=== PATIENT | female | born 1985 | race Asian ===

== ENCOUNTER → 2016-08-15 | Outpatient (REF) | payer OTHER | LOC: M LAB REF 13:33 | PROVIDERS: ATTEND Advanced Practice Midwife | DX: Z12.4 Encounter for screening for malignant neoplasm of cervix (principal) ==

== ENCOUNTER → 2017-11-20 | Outpatient (REF) | payer OTHER ==
[2017-11-23 14:15] LABS: HPV HYBRID CAPTURE II Negative (Negative)
== END ==
LOC: M LAB REF 19:16
DX: Z12.4 Encounter for screening for malignant neoplasm of cervix (principal)

== ENCOUNTER → 2017-11-27 | Outpatient (REF) | payer OTHER ==
[2017-11-27 14:01] LABS: PROLACTIN 15.2 NG/ML
[2017-11-27 14:01] LABS: PROGESTERONE 19.2 NG/ML
[2017-11-27 14:02] LABS: LUTEINIZING HORMONE 1.9 mIU/mL
[2017-11-27 14:18] LABS: FREE T4 0.99 NG/DL (0.76-1.46)
== END ==
LOC: M LAB REF 12:36
DX: N93.8 Other specified abnormal uterine and vaginal bleeding (principal)

== ENCOUNTER → 2018-11-12 | Outpatient (REF) | payer OTHER ==
[2018-11-12 20:03] LABS: FREE T4 0.99 NG/DL (0.76-1.46)
[2018-11-12 20:15] LABS: HCG, SERUM QUALITATIVE NEGATIVE (NEGATIVE)
== END ==
LOC: M LAB REF 19:14 → M LABDRWAD 19:14
PROVIDERS: ATTEND Advanced Practice Midwife
DX: N93.8 Other specified abnormal uterine and vaginal bleeding (principal)

== ENCOUNTER → 2018-11-30 | Outpatient (CLI) | payer OTHER ==
--- NOTE | 2018-11-30 19:28 | REP ---
REASON: Vaginal bleeding. COMPARISON: Multiple, the latest 04/04/2016 which showed a fibroid uterus. Today's examination was obtained using transvesical and transvaginal imaging. The uterus measures 11.5 x 7.5 x 9.3 cm. The parenchymal echo pattern is markedly heterogenous as on the prior exam. The endometrial echo complex is partially obscured and deformed by the fibroid changes. The imageable portion has a maximal thickness of 5 mm. In the uterine body on the right there is a 9.5 x 5.4 x 8.1 cm sized mixed echo mass. On the left there is a 3.2 x 2.2 x 2.6 cm sized mixed echo mass. These have increased in size compared to the prior exam. The right ovary measures 3.5 x 2.5 x 2.4 cm and is within normal limits. Left ovary measures 3.9 x 2.3 x 2.3 cm and is within normal limits. The urinary bladder measures 3.3 x 1.6 x 5.5 cm. IMPRESSION:Increased uterine size and increased myomatous change as described above. Electronically Signed by Familia Lainez DO 11/30/2018 07:49 P
== END ==
LOC: M RAD 10:28
PROVIDERS: ATTEND Advanced Practice Midwife
DX: N93.8 Other specified abnormal uterine and vaginal bleeding (principal)

== ENCOUNTER 2019-02-18 07:25 | Day surgery (SDC) | payer OTHER ==
[~2019-02-18] VITALS: Ht 152.4 cm; Wt 43.5 kg
[~2019-02-18 07:25] MED LIST: LR 1,000 ML IV ONE
[2019-02-18 08:01] LABS: URINE PREG TEST NEGATIVE (NEGATIVE)
[2019-02-18 08:04] LABS: HEMATOCRIT 44.5 % (36.0-47.0); HEMOGLOBIN 14.5 g/dl (12.0-15.5); MEAN CORPUSCULAR HEMOGLOBIN 29.6 pg (27.0-33.0); MEAN CORPUSCULAR HGB CONC 32.6 g/dl (32.0-36.5); MEAN CORPUSCULAR VOLUME 90.8 fl (80.0-96.0); PLATELET COUNT, AUTOMATED 328 10^3/uL (150-450); WHITE BLOOD COUNT 4.2 10^3/uL (4.0-10.0)
[2019-02-18] MEDS ORDERED: VASOPRESSIN INJ 20 UNITS/ML VIAL As Ordered ONE (09:24)
[2019-02-18] MEDS ORDERED: LIDOCAINE 2% INJ 100 MG/5 ML SDV (FOR ANES.) As Ordered ONE (10:02)
[2019-02-18] MEDS ORDERED: fentaNYL 100 MCG/2 ML INJECTION (J3010) As Ordered ONE ×2 (10:02→12:44)
[2019-02-18] MEDS ORDERED: ONDANSETRON 4MG/2ML VIAL (J2405) As Ordered ONE ×2 (10:02→15:56)
[2019-02-18] MEDS ORDERED: KETOROLAC 60 MG/2 ML VIAL (J1885) As Ordered ONE (10:02)
[2019-02-18] MEDS ORDERED: dexameTHASONE 4 MG/ML 1ML VIAL (J1100) As Ordered ONE (10:02)
[2019-02-18] MEDS ORDERED: MIDAZOLAM INJ 2 MG/2 ML VIAL (J2250) As Ordered ONE (10:02)
[2019-02-18] MEDS ORDERED: PROPOFOL 200 MG/20 ML VIAL As Ordered ONE (10:02)
[2019-02-18] MEDS ORDERED: ACETAMINOPHEN 1000MG 100ML IV BTL (OFIRMEV) (J0131 PER 10MG) As Ordered ONE (10:02)
[2019-02-18] MEDS ORDERED: HYDROmorphone HCL 2 MG/ML 1ML VIAL (J1170) As Ordered ONE (10:02)
[2019-02-18] MEDS ORDERED: ROCURONIUM BROMIDE 50 MG/5 ML VIAL As Ordered ONE (10:02)
[2019-02-18] MEDS ORDERED: SUGAMMADEX SODIUM 500 MG/5 ML VIAL (BRIDION) As Ordered ONE (10:31)
[2019-02-18] MEDS ORDERED: ePHEDrine SULFATE 25 MG/5 ML(5MG/ML) SYRINGE As Ordered ONE (10:32)
[2019-02-18] MEDS: fentaNYL 100 MCG/2 ML INJECTION (J3010) IV PRN ×4 (12:45→13:00)
[2019-02-18] MEDS ORDERED: OXYC1TAB23 PO (12:54)
[2019-02-18] MEDS ORDERED: IBUP-1022 PO (12:55)
[2019-02-18] MEDS ORDERED: PERCOCET 5MG/325MG TAB PO PRN ×3 (13:00)
[2019-02-18] MEDS ORDERED: LR 1,000 ML IV SCH ×2 (13:00)
[2019-02-18] MEDS ORDERED: ONDANSETRON 4MG/2ML VIAL (J2405) IV PRN (13:00)
[2019-02-18] MEDS ORDERED: METOCLOPRAMIDE INJ 10MG/2ML VIAL (J2765) IV PRN (13:00)
[2019-02-18] MEDS ORDERED: IBUPROFEN 800 MG TAB PO ONE (17:30)
[2019-02-18] MEDS ORDERED: METOCLOPRAMIDE INJ 10MG/2ML VIAL (J2765) As Ordered ONE (17:45)
[2019-02-18 19:30] VITALS: BP 98/60
--- NOTE | 2019-02-19 02:24 | RO ---
DATE OF PROCEDURE: 02/18/2019 PREOPERATIVE DIAGNOSIS: Symptomatic fibroid uterus. POSTOPERATIVE DIAGNOSIS: Symptomatic fibroid uterus. PROCEDURE: Robotic-assisted laparoscopic myomectomy. SURGEON: Govind Peres MD IRRADIATED FUEL HANDLER: Minerva Collins NP ANESTHESIA: General endotracheal. ESTIMATED BLOOD LOSS: 300 mL. URINE OUTPUT: 200 mL. FINDINGS: 10 cm uterine fibroid with multilobulated appearance in the subserosal region on the right side of the uterus. OPERATIVE SUMMARY: The patient taken to the operating room, where general endotracheal anesthesia was induced. She was prepped and draped in a sterile fashion in the dorsal lithotomy position. Bernstein catheter was placed. A ZFiveStars uterine manipulator was placed. Periumbilical incision was made with a scalpel and carried through to the fascia. A Veress needle was placed through this incision while tenting up on the skin of the abdomen. Intra-abdominal location of the Veress needle was assessed with the use of a saline-filled syringe. Pneumoperitoneum was created. The Veress needle was removed. An 8 mm trocar using Visiport was inserted through this incision. Three 8 mm suprapubic ports were placed under direct visualization. The Edgari surgical robot was docked to the ports. Using a fenestrated bipolar instrument and the monopolar Endo Eli, a vertical incision was created in the right posterior surface of the uterus over the large uterine fibroid. Myometrial adhesions to the fibroid were dissected with combination of blunt and sharp dissection. Perforating blood vessels to the fibroid were coagulated and incised as they were encountered. The fibroid was grasped with an endoscopic tenaculum to help give tension. The fibroid was twisted in different directions to allow for dissection of the myometrium off the fibroid. The fibroid was removed intact. Multiple lobes, as well. The fibroid went about 75% through the thickness of the myometrium and did not enter the endometrial cavity. The uterus was closed with #1 V-Loc suture in a running fashion. A second layer was also placed. The incision was then sprayed with an Daniella matrix. Good hemostasis was noted. The da Nayla surgical robot was undocked. The fibroid was placed in a 10 cm Endo Catch bag with some difficulty. The fibroid was brought through the umbilical port. This port was extended to about 3 cm. The fibroid was morcellated in the bag and removed in its entirety. The fascia at the umbilical port was closed with #0 Vicryl in a running fashion. The deep layer was closed with #2-0 Vicryl. Skin of all ports was closed with #4-0 Monocryl subcuticular sutures. Minerva Collins NP, assisted in all aspects of procedure from beginning to end. She helped position the patient, insert the ports. She manipulated the uterus throughout the procedure. She assisted with removal of the specimen and assisted in closure of all ports.
== END 2019-02-18 20:07 | disposition home or self-care (01) ==
LOC: M SDC 07:25
PROVIDERS: ATTEND Specialist
DX: D25.9 Leiomyoma of uterus, unspecified (principal)
CPT/HCPCS: 36415; 58545; 84703; 85027; 86850; 86900; 86901; 88305; J0131; J1100; J1170; J1885; J2250; J2405; J2765; J3010

== ENCOUNTER → 2019-12-26 | Outpatient (REF) | payer OTHER ==
[~2019-12-26] MED LIST changes: +IBUP-1022 PO; -LR 1,000 ML IV ONE; +OXYC1TAB23 PO
== END ==
LOC: M SFHCWAGY 18:14
PROVIDERS: ATTEND Specialist
DX: Z01.419 Encounter for gynecological examination (general) (routine) without abnormal findings (principal); Z12.4 Encounter for screening for malignant neoplasm of cervix

== ENCOUNTER → 2021-11-30 | Outpatient (REF) | payer OTHER | LOC: M SFHCWAGY 12:56 | PROVIDERS: ATTEND Specialist | DX: Z12.4 Encounter for screening for malignant neoplasm of cervix (principal) ==

== ENCOUNTER → 2022-03-07 | Outpatient (CLI) | payer OTHER | LOC: M WHC 13:34 | PROVIDERS: ATTEND Specialist | DX: D25.9 Leiomyoma of uterus, unspecified (principal) ==

== ENCOUNTER → 2022-05-18 | Outpatient (CLI) | payer OTHER | LOC: M LABSMTC 10:19 | PROVIDERS: ATTEND Anesthesiology | DX: Z01.812 Encounter for preprocedural laboratory examination (principal); Z11.52 Encounter for screening for COVID-19 ==

== ENCOUNTER 2022-05-23 08:22 | Day surgery (SDC) | payer OTHER ==
[~2022-05-23] VITALS: Ht 152.4 cm; Wt 49.0 kg
[2022-05-23] MEDS ORDERED: LR 1,000 ML IV SCH ×3 (09:10→14:15)
[2022-05-23 09:16] LABS: HEMATOCRIT 31.3 % (36.0-47.0); HEMOGLOBIN 9.1 g/dl (12.0-15.5); MEAN CORPUSCULAR HGB CONC 29.1 g/dl (32.0-36.5); MEAN CORPUSCULAR VOLUME 72.1 fl (80.0-96.0); PLATELET COUNT, AUTOMATED 464 10^3/uL (150-450); RED BLOOD COUNT 4.34 10^6/uL (4.00-5.40); WHITE BLOOD COUNT 4.7 10^3/uL (4.0-10.0)
[2022-05-23] MEDS ORDERED: propofoL 200 MG/20 ML VIAL As Ordered ONE (09:24)
[2022-05-23] MEDS ORDERED: fentaNYL 100 MCG/2 ML INJECTION As Ordered ONE (09:24)
[2022-05-23] MEDS ORDERED: LIDOCAINE 2% 100MG/5ML SDV (FOR ANES.) As Ordered ONE (09:24)
[2022-05-23] MEDS ORDERED: ROCURONIUM BROMIDE 50 MG/5 ML VIAL As Ordered ONE (09:24)
[2022-05-23] MEDS ORDERED: MIDAZOLAM INJ 2MG/2ML VIAL (J2250 PER 1MG) As Ordered ONE (09:25)
[2022-05-23] MEDS ORDERED: GLYCOPYRROLATE INJ 0.2 MG/ML 2 ML VIAL As Ordered ONE (09:31)
[2022-05-23] MEDS ORDERED: BUPIVACAINE HCL 0.25% 10ML VIAL As Ordered ONE (10:20)
[2022-05-23] MEDS ORDERED: dexameTHASONE 4 MG/ML 1ML VIAL (J1100 PER 1MG) As Ordered ONE ×2 (10:45→13:57)
[2022-05-23] MEDS ORDERED: HYDROmorphone HCL 2MG/ML 1ML VIAL As Ordered ONE (10:54)
[2022-05-23] MEDS ORDERED: KETOROLAC 60MG 2ML VIAL As Ordered ONE (10:57)
[2022-05-23] MEDS ORDERED: METOCLOPRAMIDE INJ 10MG/2ML VIAL (J2765 PER 1) As Ordered ONE (10:57)
[2022-05-23] MEDS ORDERED: ACETAMINOPHEN 1000MG 100ML IV BTL (OFIRMEV) (J0131 PER 10MG) As Ordered ONE (10:57)
[2022-05-23] MEDS ORDERED: ONDANSETRON 4MG 2ML VIAL As Ordered ONE (10:57)
[2022-05-23] MEDS ORDERED: ONDANSETRON 4MG 2ML VIAL IV PRN (13:05)
[2022-05-23] MEDS ORDERED: fentaNYL 100 MCG/2 ML INJECTION IV PRN (13:05)
[2022-05-23] MEDS ORDERED: OXYC1TAB23 PO (13:45)
[2022-05-23] MEDS ORDERED: IBUP-1022 PO (13:46)
[2022-05-23] MEDS: HYDROMORPHONE HCL 0.5 MG/ 0.5 ML SYRINGE (J1170 PER 1) IV PRN ×2 (14:05→14:10)
[2022-05-23] MEDS: oxyCODONE 5MG TAB PO PRN ×2 (14:06→14:39)
[2022-05-23] MEDS ORDERED: PERCOCET 5MG/325MG TAB PO PRN (14:20)
[2022-05-23 18:47] VITALS: BP 119/75
== END 2022-05-23 18:09 | disposition home or self-care (01) ==
LOC: M SDC 08:22
PROVIDERS: ATTEND Specialist
DX: D25.9 Leiomyoma of uterus, unspecified (principal); K66.0 Peritoneal adhesions (postprocedural) (postinfection)
CPT/HCPCS: 36415; 58545; 81025; 85027; 88305; J0131; J1100; J1170; J1885; J2250; J2405; J2765; J3010; S2900

== ENCOUNTER → 2023-12-12 | Outpatient (REF) | payer OTHER ==
[2023-12-15 07:09] LABS: HPV APTIMA Negative (Negative)
== END ==
LOC: M SFHCWAGY 12:55
PROVIDERS: ATTEND Specialist
DX: Z12.4 Encounter for screening for malignant neoplasm of cervix (principal)

== ENCOUNTER → 2023-12-12 | Outpatient (CLI) | payer OTHER | LOC: M WHC 09:05 | PROVIDERS: ATTEND Specialist | DX: Z12.31 Encounter for screening mammogram for malignant neoplasm of breast (principal) ==

== ENCOUNTER → 2023-12-28 | Outpatient (CLI) | payer OTHER ==
[~2023-12-28] MED LIST changes: +GASTROGRAFIN SOLUTION 30ML As Ordered ONE; +ISOVUE-370 76% 100ML VIAL As Ordered ONE
== END ==
LOC: M RAD 12:06
PROVIDERS: ATTEND Specialist
DX: R10.9 Unspecified abdominal pain (principal)
CPT/HCPCS: 74177; Q9963; Q9967

== ENCOUNTER → 2024-01-09 | Outpatient (CLI) | payer OTHER ==
[~2024-01-09] MED LIST changes: -GASTROGRAFIN SOLUTION 30ML As Ordered ONE; -ISOVUE-370 76% 100ML VIAL As Ordered ONE
== END ==
LOC: M WHC 08:42
PROVIDERS: ATTEND Specialist
DX: Z12.31 Encounter for screening mammogram for malignant neoplasm of breast (principal); N60.12 Diffuse cystic mastopathy of left breast

== ENCOUNTER 2024-07-02 23:22 | Emergency (ER) | payer OTHER ==
[~2024-07-02] VITALS: Ht 152.4 cm; Wt 48.4 kg
[2024-07-02 23:28] VITALS: BP 132/72; TEMP 98.4; O2SAT 100
== END 2024-07-03 02:14 | disposition left against medical advice (07) ==
LOC: EDBD 23:22 → M ED 07-03 02:11
DX: Z53.21 Procedure and treatment not carried out due to patient leaving prior to being seen by health care provider (principal)

== ENCOUNTER → 2025-01-28 | Outpatient (CLI) | payer OTHER ==
[~2025-01-28] MED LIST changes: +ISOVUE-370 76% 100 ML VIAL As Ordered ONE
== END ==
LOC: M RAD 17:35
PROVIDERS: ATTEND Specialist
DX: R91.1 Solitary pulmonary nodule (principal)
CPT/HCPCS: 71275; Q9967